=== PATIENT | female | born 1980 | race African-American/Black ===

== ENCOUNTER 2022-10-19 12:38 | Emergency (ER) | payer BC ==
[2022-10-19 12:49] VITALS: TEMP 98.8; BMI 19.6
[2022-10-19] MEDS ORDERED: KETOROLAC TROMETHAMINE 15 MG/ML VIAL IVPUSH ONE (13:25)
[2022-10-19] MEDS ORDERED: LIDOCAINE 5% TOPICAL PATCH TP ONE (13:25)
[2022-10-19] MEDS ORDERED: ACETAMINOPHEN 500 MG TABLET (FP) PO ONE (13:26)
[2022-10-19] MEDS ORDERED: KETOROLAC TROMETHAMINE 15 MG/ML VIAL ONE (13:28)
[2022-10-19] MEDS ORDERED: LIDOCAINE 5% TOPICAL PATCH ONE (13:28)
[2022-10-19] MEDS ORDERED: ACETAMINOPHEN 325 MG TABLET (FP) ONE (13:47)
[2022-10-19 13:52] LABS: BASO % 0.6 % (0-2.0); HEMATOCRIT 37.9 % (32.4-45.2); HEMOGLOBIN 12.6 GM/dL (10.7-15.3); LYMPH % 23.2 % (8-40); MCH 29.1 pg (25.7-33.7); MCHC 33.4 g/dl (32.0-36.0); MEAN CELL VOLUME 87.4 fl (80-96); MONO % 6.2 % (3.8-10.2); PLATELET COUNT 245 10^3/uL (134-434); RBC 4.34 M/mm3 (3.60-5.2); RDW 13.4 % (11.6-15.6); WHITE BLOOD COUNT 5.5 K/mm3 (4.0-10.0)
[2022-10-19 14:12] VITALS: BP 130/68; PULSE 70; RESP 16
[2022-10-19 14:22] LABS: ALBUMIN 4.2 g/dl (3.4-5.0); BLOOD UREA NITROGEN 11.2 mg/dL (7-18); CALCIUM 9.3 mg/dL (8.5-10.1); MAGNESIUM 2.1 mg/dL (1.8-2.4)
[2022-10-19 14:25] LABS: PHOSPHOROUS 2.5 mg/dL (2.5-4.9)
[2022-10-19 14:26] LABS: CREATININE 0.9 mg/dL (0.55-1.3)
[2022-10-19 14:27] LABS: BILIRUBIN,TOTAL 0.5 mg/dL (0.2-1); TOT PROT 7.9 g/dl (6.4-8.2)
[2022-10-19] MEDS ORDERED: LIDOCAINE PATCH REMOVAL MC SCH (22:00)
== END 2022-10-19 14:57 | disposition home or self-care (01) ==
LOC: JER 12:38
PROC: 3E0333Z Introduction of Anti-inflammatory into Peripheral Vein, Percutaneous Approach (ICD-10-PCS; principal; 2022-10-19)
DX: R07.89 Other chest pain (principal)
CPT/HCPCS: 36415; 71046-TC-FY; 80053; 83735; 84100; 84484; 85025; 93005; 93010; 99284-25

== ENCOUNTER 2024-01-16 12:37 | Emergency (ER) | payer BC ==
[2024-01-16 12:56] VITALS: PULSE 109; TEMP 98.5; BMI 20.4
[2024-01-16] MEDS ORDERED: LIDOCAINE 4% PATCH TP ONE (14:36)
[2024-01-16] MEDS ORDERED: ACETAMINOPHEN INJECTION 100 ML IVPB ONE (14:36)
[2024-01-16] MEDS: LIDOCAINE 4% PATCH TP ONE (14:39)
[2024-01-16] MEDS: ACETAMINOPHEN 1000 MG/100 ML BAG IVPB ONE (14:40)
[2024-01-16 14:49] LABS: BASO % 0.2 % (0-2.0); EOS % 1.4 % (0-4.5); HEMATOCRIT 39.3 % (32.4-45.2); HEMOGLOBIN 13.2 GM/dL (10.7-15.3); LYMPH % 16.1 % (8-40); MCH 28.8 pg (25.7-33.7); MCHC 33.5 g/dl (32.0-36.0); MEAN CELL VOLUME 85.9 fl (80-96); MEAN PLT VOLUME 8.2 fl (7.5-11.1); MONO % 4.9 % (3.8-10.2); NEUT % 77.4 % (42.8-82.8); PLATELET COUNT 264 10^3/uL (134-434); RBC 4.58 M/mm3 (3.60-5.2); RDW 14.4 % (11.6-15.6); WHITE BLOOD COUNT 8.4 K/mm3 (4.0-10.0)
[2024-01-16 14:57] LABS: INR 1.03 (0.83-1.09); PROTHROMBIN TIME (PATIENT) 11.9 SEC (9.7-13.0)
[2024-01-16 15:00] LABS: ACTIVATED PTT 29.9 SECONDS (25.2-36.5)
[2024-01-16 15:17] LABS: CALCIUM 9.9 mg/dL (8.5-10.1); POTASSIUM 3.5 mmol/L (3.5-5.1)
[2024-01-16 15:18] LABS: ALBUMIN 4.6 g/dl (3.4-5.0); BLOOD UREA NITROGEN 8.9 mg/dL (7-18)
[2024-01-16 15:21] LABS: CREATININE 0.8 mg/dL (0.55-1.3)
[2024-01-16 15:23] LABS: BILIRUBIN,TOTAL 0.5 mg/dL (0.2-1); TOT PROT 8.3 g/dl (6.4-8.2)
[2024-01-16 18:15] VITALS: BP 148/78; RESP 16
[2024-01-16] MEDS ORDERED: LIDOCAINE PATCH REMOVAL MC ONE (22:00)
== END 2024-01-16 18:16 | disposition home or self-care (01) ==
LOC: JER 12:37
PROC: 3E030NZ Introduction of Analgesics, Hypnotics, Sedatives into Peripheral Vein, Open Approach (ICD-10-PCS; principal; 2024-01-16)
DX: R07.9 Chest pain, unspecified (principal); R00.0 Tachycardia, unspecified; Z20.822 Contact with and (suspected) exposure to COVID-19
CPT/HCPCS: 0241U-QW; 36415; 71045-TC-FY; 71275-TC; 80053; 84484; 84703; 85025; 85379; 85610; 85730; 93005; 93010; 99285-25; J0131; Q9967

== ENCOUNTER 2024-01-19 11:58 | Observation (INO) | payer BC ==
[2024-01-19] MEDS: ACETAMINOPHEN 1000 MG/100 ML BAG IVPB ONE (12:37)
[2024-01-19] MEDS ORDERED: ASPIRIN 81 MG CHEWABLE TABLETS ONE (12:38)
[2024-01-19] MEDS: ASPIRIN 81 MG CHEWABLE TABLETS PO ONE (12:54)
[2024-01-19 13:41] LABS: BASO % 0.4 % (0-2.0); EOS % 0.6 % (0-4.5); HEMATOCRIT 36.6 % (32.4-45.2); HEMOGLOBIN 12.1 GM/dL (10.7-15.3); LYMPH % 11.6 % (8-40); MCH 28.9 pg (25.7-33.7); MCHC 33.1 g/dl (32.0-36.0); MEAN CELL VOLUME 87.4 fl (80-96); MEAN PLT VOLUME 8.7 fl (7.5-11.1); MONO % 4.4 % (3.8-10.2); PLATELET COUNT 232 10^3/uL (134-434); RBC 4.19 M/mm3 (3.60-5.2); RDW 14.2 % (11.6-15.6); WHITE BLOOD COUNT 9.8 K/mm3 (4.0-10.0)
[2024-01-19 13:45] LABS: INR 1.07 (0.83-1.09); PROTHROMBIN TIME (PATIENT) 12.4 SEC (9.7-13.0)
[2024-01-19 13:47] LABS: ACTIVATED PTT 27.3 SECONDS (25.2-36.5)
[2024-01-19 16:09] LABS: ALBUMIN 4.4 g/dl (3.4-5.0); BLOOD UREA NITROGEN 10.2 mg/dL (7-18); CALCIUM 9.4 mg/dL (8.5-10.1)
[2024-01-19 16:12] LABS: CREATININE 0.8 mg/dL (0.55-1.3)
[2024-01-19 16:14] LABS: BILIRUBIN,TOTAL 0.5 mg/dL (0.2-1)
[2024-01-19] MEDS: morphine CARPU-JECT 4 MG/1 ML DISP.SYRIN IVPUSH ONE (17:07)
[2024-01-19] MEDS ORDERED: KETOROLAC TROMETHAMINE 15 MG/ML VIAL ONE (18:53)
[2024-01-19] MEDS ORDERED: CYCLOBENZAPRINE HCL 5 MG TABLET ONE (18:53)
[2024-01-19] MEDS ORDERED: LIDOCAINE 4% PATCH TP ONE (18:53)
[2024-01-19] MEDS: CYCLOBENZAPRINE HCL 5 MG TABLET PO ONE (19:03)
[2024-01-19] MEDS: KETOROLAC TROMETHAMINE 15 MG/ML VIAL IVPUSH ONE (19:03)
[2024-01-19] MEDS: LIDOCAINE 5% TOPICAL PATCH TP SCH (19:03)
[2024-01-19] MEDS: LIDOCAINE PATCH REMOVAL MC SCH (22:39)
[2024-01-20] MEDS: ACETAMINOPHEN 1000 MG/100 ML BAG IVPB PRN (02:54)
[2024-01-20 03:24] VITALS: TEMP 98.2; BMI 21.2
[2024-01-20] MEDS: KETOROLAC TROMETHAMINE 30 MG/1 ML VIAL IVPUSH ONE (05:04)
[2024-01-20 07:11] LABS: HEMATOCRIT 35.8 % (32.4-45.2); HEMOGLOBIN 12.2 GM/dL (10.7-15.3); MCH 29.2 pg (25.7-33.7); MEAN PLT VOLUME 8.5 fl (7.5-11.1); PLATELET COUNT 222 10^3/uL (134-434); RBC 4.17 M/mm3 (3.60-5.2); RDW 14.8 % (11.6-15.6); WHITE BLOOD COUNT 8.3 K/mm3 (4.0-10.0)
[2024-01-20 07:30] LABS: POTASSIUM 3.8 mmol/L (3.5-5.1)
[2024-01-20 07:35] LABS: CALCIUM 9.4 mg/dL (8.5-10.1); MAGNESIUM 2.2 mg/dL (1.8-2.4)
[2024-01-20 07:39] LABS: BLOOD UREA NITROGEN 14.5 mg/dL (7-18); CREATININE 0.8 mg/dL (0.55-1.3); PHOSPHOROUS 3.4 mg/dL (2.5-4.9)
[2024-01-20 07:40] LABS: CHOLESTEROL 174 mg/dL (50-200)
[2024-01-20 07:41] LABS: LDL CHOLESTEROL (ONLY SJRH) 82 mg/dL (5-100)
[2024-01-20 07:43] LABS: HDL CHOLESTEROL 81 mg/dL (40-60)
[2024-01-20 08:53] VITALS: PULSE 77
[2024-01-20] MEDS: ASPIRIN COATED 81 MG TABLET.EC PO SCH (09:00)
[2024-01-20] MEDS: ENOXAPARIN NA (PORCINE) 40 MG/0.4 ML DISP.SYRIN SQ SCH (09:00)
[2024-01-20 12:11] VITALS: BP 113/66; RESP 15
[2024-01-20] MEDS: CYCLOBENZAPRINE HCL 10 MG TABLET (FP) PO ONE (15:36)
== END 2024-01-20 16:51 | disposition home or self-care (01) ==
LOC: JER 11:58 → JERBED 16:55 → J2W 01-20 03:08
PROVIDERS: ADMIT Internal Medicine; ATTEND Internal Medicine
PROC: 3E033NZ Introduction of Analgesics, Hypnotics, Sedatives into Peripheral Vein, Percutaneous Approach (ICD-10-PCS; principal; 2024-01-19)
PROC: 3E023GC Introduction of Other Therapeutic Substance into Muscle, Percutaneous Approach (ICD-10-PCS; 2024-01-19)
PROC: 3E0333Z Introduction of Anti-inflammatory into Peripheral Vein, Percutaneous Approach (ICD-10-PCS; 2024-01-19)
DX: R07.89 Other chest pain (principal); M79.18 Myalgia, other site; M54.9 Dorsalgia, unspecified
CPT/HCPCS: 0241U-QW; 36415; 71046-TC-FY; 80048; 80053; 80061; 83036; 83735; 84100; 84443; 84484; 84703; 85025; 85027; 85610; 85730; 93005; 93010; 93306-TC; 96372; 96374; 96375; 96376; 99285-25; G0378; J0131

== ENCOUNTER 2024-02-01 13:53 | Emergency (ER) | payer BC ==
[2024-02-01 14:03] VITALS: RESP 18; TEMP 97.3; BMI 19.6
[2024-02-01 15:24] LABS: BASO % 0.4 % (0-2.0); EOS % 0.6 % (0-4.5); HEMATOCRIT 35.3 % (32.4-45.2); MCH 29.1 pg (25.7-33.7); MCHC 33.9 g/dl (32.0-36.0); MEAN CELL VOLUME 85.9 fl (80-96); MEAN PLT VOLUME 7.9 fl (7.5-11.1); MONO % 7.4 % (3.8-10.2); NEUT % 79.6 % (42.8-82.8); PLATELET COUNT 212 10^3/uL (134-434); RBC 4.11 M/mm3 (3.60-5.2); RDW 14.1 % (11.6-15.6)
[2024-02-01 15:31] LABS: INR 1.07 (0.83-1.09); PROTHROMBIN TIME (PATIENT) 12.1 SEC (9.7-13.0)
[2024-02-01 15:34] LABS: ACTIVATED PTT 27.4 SECONDS (25.2-36.5)
[2024-02-01] MEDS: ACETAMINOPHEN 1000 MG/100 ML BAG IVPB ONE (15:40)
[2024-02-01 15:51] LABS: POTASSIUM 3.6 mmol/L (3.5-5.1)
[2024-02-01 15:53] LABS: CALCIUM 9.2 mg/dL (8.5-10.1)
[2024-02-01 15:54] LABS: ALBUMIN 4.1 g/dl (3.4-5.0); BLOOD UREA NITROGEN 10.2 mg/dL (7-18); MAGNESIUM 1.8 mg/dL (1.8-2.4)
[2024-02-01 15:57] LABS: CREATININE 0.6 mg/dL (0.55-1.3)
[2024-02-01 15:58] LABS: TOT PROT 7.4 g/dl (6.4-8.2)
[2024-02-01 15:59] LABS: BILIRUBIN,TOTAL 0.4 mg/dL (0.2-1)
[2024-02-01] MEDS: SODIUM CHLORIDE 0.9% 1000 ML INFUS.BAG IV ONE (16:23)
[2024-02-01] MEDS: LIDOCAINE 4% PATCH TP ONE (16:23)
[2024-02-01] MEDS ORDERED: KETOROLAC TROMETHAMINE 15 MG/ML VIAL ONE (16:45)
[2024-02-01] MEDS ORDERED: LIDOCAINE 4% PATCH TP ONE (16:45)
[2024-02-01] MEDS: KETOROLAC TROMETHAMINE 15 MG/ML VIAL IVPUSH ONE (16:47)
[2024-02-01 17:11] VITALS: BP 115/59; PULSE 83
[2024-02-01] MEDS ORDERED: LIDOCAINE PATCH REMOVAL MC SCH (22:00)
== END 2024-02-01 18:22 | disposition home or self-care (01) ==
LOC: JER 13:53
PROC: 3E0333Z Introduction of Anti-inflammatory into Peripheral Vein, Percutaneous Approach (ICD-10-PCS; principal; 2024-02-01)
DX: R07.9 Chest pain, unspecified (principal); M54.6 Pain in thoracic spine; M79.602 Pain in left arm; R00.2 Palpitations
CPT/HCPCS: 36415; 71045-TC-FY; 80053; 82550; 83735; 84484; 85025; 85610; 85730; 93005; 93010; 99285-25

== ENCOUNTER 2024-02-01 19:49 | Emergency (ER) | payer BC ==
[2024-02-01 19:57] VITALS: BP 128/76; PULSE 85; RESP 19; TEMP 98.1; BMI 19.3
[2024-02-01 20:47] LABS: URINE APPEARANCE CLOUDY; URINE BILIRUBIN NEGATIVE (NEGATIVE); URINE COLOR YELLOW; URINE GLUCOSE (UA) NEGATIVE (NEGATIVE); URINE KETONE NEGATIVE (NEGATIVE); URINE LEUK ESTERASE NEGATIVE (NEGATIVE); URINE NITRITE NEGATIVE (NEGATIVE); URINE PROTEIN NEGATIVE (NEGATIVE); URINE UROBILINOGEN 0.2 mg/dL (0.2-1.0)
[2024-02-01 21:15] LABS: POTASSIUM 3.5 mmol/L (3.5-5.1)
[2024-02-01 21:16] LABS: CALCIUM 9.9 mg/dL (8.5-10.1)
[2024-02-01 21:20] LABS: CREATININE 0.8 mg/dL (0.55-1.3)
== END 2024-02-01 21:55 | disposition home or self-care (01) ==
LOC: JER 19:49
DX: R20.0 Anesthesia of skin (principal); E87.1 Hypo-osmolality and hyponatremia; R07.9 Chest pain, unspecified
CPT/HCPCS: 36415; 80048; 81003; 82570; 83930; 83935; 84300; 99283-25

== ENCOUNTER 2024-04-04 16:15 | Emergency (ER) | payer BC ==
[2024-04-04 16:28] VITALS: BP 129/76; PULSE 98; RESP 17; TEMP 99.3; BMI 20.7
[2024-04-04 17:31] LABS: BASO % 0.5 % (0-2.0); EOS % 0.1 % (0-4.5); HEMATOCRIT 41.3 % (32.4-45.2); HEMOGLOBIN 13.8 GM/dL (10.7-15.3); LYMPH % 12.5 % (8-40); MCH 28.6 pg (25.7-33.7); MCHC 33.3 g/dl (32.0-36.0); MEAN CELL VOLUME 85.9 fl (80-96); MONO % 1.9 % (3.8-10.2); PLATELET COUNT 305 10^3/uL (134-434); RBC 4.81 M/mm3 (3.60-5.2); RDW 14.2 % (11.6-15.6); WHITE BLOOD COUNT 10.1 K/mm3 (4.0-10.0)
[2024-04-04] MEDS: SODIUM CHLORIDE 0.9% 500 ML INFUS.BAG IV ONE (17:32)
[2024-04-04 17:50] LABS: POTASSIUM 4.8 mmol/L (3.5-5.1)
[2024-04-04 17:52] LABS: ALBUMIN 4.9 g/dl (3.4-5.0); CALCIUM 9.9 mg/dL (8.5-10.1); MAGNESIUM 2.1 mg/dL (1.8-2.4)
[2024-04-04 17:53] LABS: BLOOD UREA NITROGEN 7.5 mg/dL (7-18)
[2024-04-04 17:55] LABS: CREATININE 0.8 mg/dL (0.55-1.3)
[2024-04-04 17:57] LABS: BILIRUBIN,TOTAL 0.5 mg/dL (0.2-1); TOT PROT 9.7 g/dl (6.4-8.2)
== END 2024-04-04 20:16 | disposition home or self-care (01) ==
LOC: JER 16:15
DX: R07.9 Chest pain, unspecified (principal); R51.9 Headache, unspecified; G89.29 Other chronic pain; R00.2 Palpitations; Z20.822 Contact with and (suspected) exposure to COVID-19
CPT/HCPCS: 0241U-QW; 36415; 70450-TC; 80053; 83735; 84439; 84443; 84484; 84703; 85025; 93005; 93010; 99285-25

== ENCOUNTER 2024-06-24 14:38 | Emergency (ER) | payer BC ==
[2024-06-24 14:50] VITALS: BP 134/82; PULSE 89; RESP 17; TEMP 98.8; BMI 25.9
[2024-06-24] MEDS ORDERED: METOCLOPRAMIDE HCL INJECTION 10 MG/2 ML VIAL ONE (15:32)
[2024-06-24] MEDS: METOCLOPRAMIDE HCL INJECTION 10 MG/2 ML VIAL IVPUSH ONE (15:49)
[2024-06-24] MEDS: SODIUM CHLORIDE 0.9% 500 ML INFUS.BAG IV ONE (15:49)
[2024-06-24 15:54] LABS: BASO % 0.3 % (0-2.0); EOS % 0.1 % (0-4.5); HEMOGLOBIN 12.9 GM/dL (10.7-15.3); LYMPH % 9.3 % (8-40); MCH 28.7 pg (25.7-33.7); MCHC 33.9 g/dl (32.0-36.0); MEAN CELL VOLUME 84.6 fl (80-96); MEAN PLT VOLUME 7.8 fl (7.5-11.1); NEUT % 87.3 % (42.8-82.8); PLATELET COUNT 222 10^3/uL (134-434); RDW 14.2 % (11.6-15.6); WHITE BLOOD COUNT 9.8 K/mm3 (4.0-10.0)
[2024-06-24 16:15] LABS: POTASSIUM 3.5 mmol/L (3.5-5.1)
[2024-06-24 16:16] LABS: BLOOD UREA NITROGEN 10.6 mg/dL (7-18); CALCIUM 9.2 mg/dL (8.5-10.1)
[2024-06-24 16:20] LABS: CREATININE 0.8 mg/dL (0.55-1.3)
[2024-06-24 17:11] LABS: HIV INTERPRETATION NEGATIVE (NEGATIVE)
== END 2024-06-24 18:17 | disposition home or self-care (01) ==
LOC: JER 14:38
PROC: 3E033GC Introduction of Other Therapeutic Substance into Peripheral Vein, Percutaneous Approach (ICD-10-PCS; principal; 2024-06-24)
DX: R51.9 Headache, unspecified (principal); R42 Dizziness and giddiness; R00.2 Palpitations; M54.2 Cervicalgia
CPT/HCPCS: 36415; 70496-TC; 70498-TC; 80048; 85025; 86803; 87389; 93005; 93010; 99285-25; Q9967

== ENCOUNTER 2024-07-05 17:20 | Emergency (ER) | payer BC ==
[2024-07-05 17:32] VITALS: BP 141/80; PULSE 64; RESP 18; TEMP 98.4; BMI 19.9
[2024-07-05] MEDS ORDERED: ACETAMINOPHEN INJECTION 100 ML ONE (18:54)
[2024-07-05 19:01] LABS: BASO % 0.6 % (0-2.0); EOS % 0.9 % (0-4.5); HEMATOCRIT 38.2 % (32.4-45.2); HEMOGLOBIN 12.7 GM/dL (10.7-15.3); MCH 28.1 pg (25.7-33.7); MCHC 33.2 g/dl (32.0-36.0); MEAN CELL VOLUME 84.7 fl (80-96); MEAN PLT VOLUME 8.5 fl (7.5-11.1); MONO % 4.8 % (3.8-10.2); NEUT % 74.7 % (42.8-82.8); PLATELET COUNT 292 10^3/uL (134-434); RBC 4.51 M/mm3 (3.60-5.2); WHITE BLOOD COUNT 6.8 K/mm3 (4.0-10.0)
[2024-07-05] MEDS: SODIUM CHLORIDE 0.9% 500 ML INFUS.BAG IV ONE (19:03)
[2024-07-05] MEDS: ACETAMINOPHEN 1000 MG/100 ML BAG IVPB ONE (19:04)
[2024-07-05 19:08] LABS: POTASSIUM 3.9 mmol/L (3.5-5.1)
[2024-07-05 19:11] LABS: CALCIUM 9.4 mg/dL (8.5-10.1)
[2024-07-05 19:12] LABS: ALBUMIN 4.3 g/dl (3.4-5.0); BLOOD UREA NITROGEN 8.7 mg/dL (7-18)
[2024-07-05 19:17] LABS: BILIRUBIN,TOTAL 0.6 mg/dL (0.2-1); TOT PROT 7.8 g/dl (6.4-8.2)
[2024-07-05 20:05] LABS: CREATININE 0.8 mg/dL (0.55-1.3)
== END 2024-07-05 20:35 | disposition home or self-care (01) ==
LOC: JER 17:20
PROC: 3E033NZ Introduction of Analgesics, Hypnotics, Sedatives into Peripheral Vein, Percutaneous Approach (ICD-10-PCS; principal; 2024-07-05)
DX: R51.9 Headache, unspecified (principal); R07.9 Chest pain, unspecified
CPT/HCPCS: 36415; 80053; 85025; 93005; 93010; 99284-25; J0131